=== PATIENT | female | born 1970 ===

== ENCOUNTER 2021-04-27 06:43 | Day surgery (SDC) | payer OTHER ==
[~2021-04-27 06:43] MED LIST: COZAAR50 MG PO; SYNTHROID112 MCG PO
== END 2021-04-27 21:19 | disposition home or self-care (01) ==
LOC: CIR.AMB 06:43
PROVIDERS: ATTEND Surgery
DX: D24.1 Benign neoplasm of right breast (principal); N60.81 Other benign mammary dysplasias of right breast; Z20.822 Contact with and (suspected) exposure to COVID-19